=== PATIENT | female | born 1980 | race Caucasian/White ===

== ENCOUNTER 2017-08-02 11:16 | Day surgery (SDC) | payer BC ==
[~2017-08-02] VITALS: Ht 157.5 cm; Wt 122.9 kg
[~2017-08-02 11:16] MED LIST: ACET325 PO; CLIN300 PO; CYCL10 PO; ESCI20 PO; FOLI1 PO; HYDACE5 PO; Hair, Skin & N1 EACH PO; IBUP800 PO; METF500 PO; Omeprazole20 M1 PO; PREN-16 PO; ROSU10TA PO
[2017-08-14] MEDS ORDERED: RANI150 PO (09:48)
== END 2017-08-02 22:57 | disposition home or self-care (01) ==
LOC: ORSCMMR 11:16
PROVIDERS: Internal Medicine Gastroenterology
PROC: 0DB68ZX Excision of Stomach, Via Natural or Artificial Opening Endoscopic, Diagnostic (ICD-10-PCS; principal; 2017-08-02 13:00)
PROC: 0DB98ZX Excision of Duodenum, Via Natural or Artificial Opening Endoscopic, Diagnostic (ICD-10-PCS; principal; 2017-08-02 13:00)
DX: K21.9 Gastro-esophageal reflux disease without esophagitis (principal); K29.00 Acute gastritis without bleeding; K92.1 Melena; R19.7 Diarrhea, unspecified; F17.210 Nicotine dependence, cigarettes, uncomplicated; E11.9 Type 2 diabetes mellitus without complications; E66.9 Obesity, unspecified; Z68.43 Body mass index [BMI] 50.0-59.9, adult; Z79.84 Long term (current) use of oral hypoglycemic drugs; Z79.899 Other long term (current) drug therapy
CPT/HCPCS: 82947; 88305; 88342; J2250; J7120

== ENCOUNTER 2017-08-22 07:42 | Day surgery (SDC) | payer BC ==
[2017-08-21 08:56] LABS: Hematocrit 44.9 % (33.0-51.0); Hemoglobin 15.2 g/dL (11.5-16.0); Mean Corpuscular HGB 31.7 pg (26.0-34.0); Mean Corpuscular HGB Conc 33.9 g/dL (31.5-36.5); Mean Corpuscular Volume 94 fL (80-100); Mean Platelet Volume 9.9 fL (9.1-12.4); Platelet Count 258 K/mm3 (150-400); RDW Coefficient Variation 12.5 % (11.7-14.2); RDW Standard Deviation 43.7 fL (35.1-46.3); White Blood Cell Count 8.12 K/mm3 (4.00-11.30)
[2017-08-21 09:14] LABS: Anion Gap 6 mmol/L (6-16); Blood Urea Nitrogen 11 mg/dL (8-24); Bun/Creatinine Ratio 14.9 (12.0-20.0); CO2, Blood 26 mmol/L (21-32); Calcium, Blood 8.8 mg/dL (8.5-10.1); Chloride, Blood 106 mmol/L (98-108); Creatinine, Blood 0.74 mg/dL (0.40-1.00); Glomerular Filtration Rate >60 (60-); Glucose, Blood 93 mg/dL (70-99); Potassium, Blood 3.9 mmol/L (3.5-5.5); Sodium, Blood 138 mmol/L (136-145)
[~2017-08-22] VITALS: Ht 157.5 cm; Wt 122.7 kg
[~2017-08-22 07:42] MED LIST changes: +RANI150 PO
[2017-08-22] MEDS ORDERED: METFORMIN HCL500 MG PO (08:42)
[2017-08-22] MEDS ORDERED: PANT20 PO (08:44)
[2017-08-22] MEDS ORDERED: GABA100 PO (19:34)
[2017-08-23 04:57] LABS: BASOPHILS ABSOLUTE AUTO 0.03 K/mm3 (0.00-0.23); BASOPHILS PERCENT AUTO 0 % (0-2); EOSINOPHILS ABSOLUTE AUTO 0.05 K/mm3 (0.00-0.68); EOSINOPHILS PERCENT AUTO 0 % (0-6); Hematocrit 38.7 % (33.0-51.0); IMMATURE GRAN ABSOLUTE AUTO 0.09 K/mm3 (0.00-0.10); IMMATURE GRAN PERCENT AUTO 1 % (0-1); LYMPHOCYTES ABSOLUTE AUTO 2.55 K/mm3 (0.84-5.20); LYMPHOCYTES PERCENT AUTO 14 % (21-46); MONOCYTES ABSOLUTE AUTO 1.06 K/mm3 (0.16-1.47); MONOCYTES PERCENT AUTO 6 % (4-13); Mean Corpuscular HGB 31.6 pg (26.0-34.0); Mean Corpuscular HGB Conc 33.6 g/dL (31.5-36.5); Mean Corpuscular Volume 94 fL (80-100); Mean Platelet Volume 9.5 fL (9.1-12.4); NEUTROPHILS ABSOLUTE AUTO 14.43 K/mm3 (1.96-9.15); NEUTROPHILS PERCENT AUTO 79 % (41-73); Platelet Count 243 K/mm3 (150-400); RDW Coefficient Variation 12.5 % (11.7-14.2); RDW Standard Deviation 43.8 fL (35.1-46.3); Red Blood Cell Count 4.11 M/mm3 (3.80-5.20); White Blood Cell Count 18.21 K/mm3 (4.00-11.30)
[2017-08-23] MEDS ORDERED: DOCU100 PO (13:24)
[2017-08-23] MEDS ORDERED: Climara Pro Pa1 EACH TOP (13:27)
[2017-08-23] MEDS ORDERED: IBUP800 PO (13:29)
[2017-08-23] MEDS ORDERED: Percocet 5-3251 EACH PO (13:30)
== END 2017-08-23 14:02 | disposition home or self-care (01) ==
LOC: ORSCMMR 07:42 → ORD 10:00 → ORSCMMR 10:00 → SURS 12:45 → ORSCMMR 08-23 14:02
PROVIDERS: Obstetrics & Gynecology
PROC: 0UT2FZZ Resection of Bilateral Ovaries, Via Natural or Artificial Opening With Percutaneous Endoscopic Assistance (ICD-10-PCS; principal; 2017-08-22 10:00)
PROC: 0UT7FZZ Resection of Bilateral Fallopian Tubes, Via Natural or Artificial Opening With Percutaneous Endoscopic Assistance (ICD-10-PCS; principal; 2017-08-22 10:00)
PROC: 0UT9FZZ Resection of Uterus, Via Natural or Artificial Opening With Percutaneous Endoscopic Assistance (ICD-10-PCS; principal; 2017-08-22 10:00)
DX: N92.0 Excessive and frequent menstruation with regular cycle (principal); N94.6 Dysmenorrhea, unspecified; N83.8 Other noninflammatory disorders of ovary, fallopian tube and broad ligament; E11.9 Type 2 diabetes mellitus without complications; E66.01 Morbid (severe) obesity due to excess calories; Z68.43 Body mass index [BMI] 50.0-59.9, adult; K21.9 Gastro-esophageal reflux disease without esophagitis; F17.210 Nicotine dependence, cigarettes, uncomplicated; Z79.899 Other long term (current) drug therapy
CPT/HCPCS: 36415; 80048; 82947; 85025; 85027; 86850; 86900; 86901; 88307; 93005; 93010; C9113; J0171; J0690; J1100; J1170; J1885; J2250; J2370; J2405; J2710; J3010; J7120

== ENCOUNTER → 2017-09-05 | Outpatient (CLI) | payer OTHER ==
[~2017-09-05] MED LIST changes: +Climara Pro Pa1 EACH TOP; +DOCU100 PO; +GABA100 PO; +METFORMIN HCL500 MG PO; +PANT20 PO; +Percocet 5-3251 EACH PO
[2017-09-05 12:03] LABS: Source, Urine Clean Catch
[2017-09-05 12:57] LABS: Bilirubin, Urine Neg (Neg); Blood, Urine 4+ (Neg); Glucose Qualitative, Urine Neg (Neg); Ketones, Urine Neg (Neg); Leukocyte Esterase, Urine 3+ (Neg); Nitrite, Urine Neg (Neg); Protein, Urine Neg (Neg); Urobilinogen, Urine NORM (Normal)
[2017-09-05 13:07] LABS: Appearance, Urine Cloudy (Clear); Color, Urine Yellow (P-Yellow)
[2017-09-05 13:10] LABS: White Blood Cells, Urine 25-50 /hpf (0-5)
[2017-09-05 13:12] LABS: Squamous Epithelial Cells Mod /hpf (Few)
[2017-09-05 13:13] LABS: Bacteria Mod /hpf
== END ==
LOC: LAB SHORT 12:00 → LAB 12:00
PROVIDERS: Obstetrics & Gynecology
DX: R39.9 Unspecified symptoms and signs involving the genitourinary system (principal)
CPT/HCPCS: 81001; 87086

== ENCOUNTER 2023-12-03 14:05 | Emergency (ER) | payer OTHER ==
[~2023-12-03] VITALS: Ht 160 cm; Wt 129.3 kg
[2023-12-03 14:30] VITALS: BP 144/107
[2023-12-03] MEDS ORDERED: Diazepam 5 MG Tab PO ONE (14:35)
[2023-12-03] MEDS ORDERED: Ketorolac Tromethamine 30mg Vial IM ONE (14:35)
[2023-12-03] MEDS ORDERED: KETO10 PO (15:51)
== END 2023-12-03 16:19 | disposition home or self-care (01) ==
LOC: ER 14:05
DX: M51.37 Other intervertebral disc degeneration, lumbosacral region (principal); G89.29 Other chronic pain; G47.30 Sleep apnea, unspecified; F17.200 Nicotine dependence, unspecified, uncomplicated; Z79.818 Long term (current) use of other agents affecting estrogen receptors and estrogen levels; Z79.84 Long term (current) use of oral hypoglycemic drugs; Z79.899 Other long term (current) drug therapy; Z88.0 Allergy status to penicillin; Z91.011 Allergy to milk products; Z88.8 Allergy status to other drugs, medicaments and biological substances
CPT/HCPCS: 96372; 99282-25; A9270; J1885

== ENCOUNTER → 2024-03-20 | Outpatient (CLI) | payer OTHER ==
[~2024-03-20] MED LIST changes: +KETO10 PO
[2024-03-20 19:56] LABS: U Amphetamine Screen Not Detected; U Barbituate Screen Not Detected; U Benzodiazapine Screen Not Detected; U Buprenorphine Screen Not Detected; U Cannabinoids Screen DETECTED; U Cocaine Screen Not Detected; U Methadone Screen Not Detected; U Methamphetamine Screen Not Detected; U Opiates Screen Not Detected; U Oxycodone Screen Not Detected; U Phencyclidine Screen Not Detected
[2024-03-25 16:12] LABS: 3-OH-COTININE, URN, QUANT <50 ng/mL; ANABASINE, URN, QUANT <5 ng/mL; COTININE, URN, QUANT <15 ng/mL; NICOTINE, URN, QUANT <15 ng/mL
== END | disposition home or self-care (01) ==
LOC: LAB 15:06 → LAB SHORT 15:06
PROVIDERS: Student in an Organized Health Care Education/Training Program
DX: E66.9 Obesity, unspecified (principal)

== ENCOUNTER 2024-08-12 02:49 | Day surgery (SDC) | payer OTHER ==
[2024-08-12] MEDS ORDERED: Lactated Ringer's 2,000 ML IV SCH (06:45)
[2024-08-12 14:20] VITALS: BP 119/68
[2024-08-12] MEDS ORDERED: XARELTO (14:56)
[2024-08-12] MEDS ORDERED: MIRT30ST PO (14:56)
[2024-08-12] MEDS ORDERED: ONDA4ODT MM (14:57)
[2024-08-12 15:45] LABS: BASOPHILS ABSOLUTE AUTO 0.09 K/mm3 (0.00-0.23); BASOPHILS PERCENT AUTO 1 % (0-2); EOSINOPHILS ABSOLUTE AUTO 0.11 K/mm3 (0.00-0.68); EOSINOPHILS PERCENT AUTO 1 % (0-6); Hematocrit 29.2 % (33.0-51.0); Hemoglobin 9.1 g/dL (11.5-16.0); IMMATURE GRAN ABSOLUTE AUTO 0.26 K/mm3 (0.00-0.10); IMMATURE GRAN PERCENT AUTO 2 % (0-1); LYMPHOCYTES ABSOLUTE AUTO 2.43 K/mm3 (0.84-5.20); LYMPHOCYTES PERCENT AUTO 19 % (21-46); MONOCYTES ABSOLUTE AUTO 1.53 K/mm3 (0.16-1.47); MONOCYTES PERCENT AUTO 12 % (4-13); Mean Corpuscular HGB 27.6 pg (26.0-34.0); Mean Corpuscular HGB Conc 31.2 g/dL (31.5-36.5); Mean Corpuscular Volume 89 fL (80-100); Mean Platelet Volume 9.4 fL (9.1-12.4); NEUTROPHILS PERCENT AUTO 65 % (41-73); NRBC ABSOLUTE 0.05 K/mm3 (0.00-0.02); NRBC Auto 0.4 /100 WBC (0.0-0.2); Platelet Count 617 K/mm3 (150-400); RDW Coefficient Variation 14.5 % (11.7-14.2); RDW Standard Deviation 45.9 fL (35.1-46.3); White Blood Cell Count 12.72 K/mm3 (4.00-11.30)
[2024-08-12 16:02] LABS: Albumin, Blood 2.3 g/dL (3.4-5.0); Anion Gap 12 mmol/L (3-11); Blood Urea Nitrogen 11 mg/dL (8-24); Bun/Creatinine Ratio 17.7 (12.0-20.0); CO2, Blood 32 mmol/L (21-32); Calcium, Blood 8.8 mg/dL (8.5-10.1); Chloride, Blood 89 mmol/L (98-108); Creatinine, Blood 0.62 mg/dL (0.40-1.00); Glomerular Filtration Rate 114 (60-); Glucose, Blood 113 mg/dL (70-99); Phosphorus, Blood 3.4 mg/dL (2.5-4.9); Potassium, Blood 3.4 mmol/L (3.5-5.5); Sodium, Blood 130 mmol/L (136-145)
== END 2024-08-12 16:55 | disposition home or self-care (01) ==
LOC: ATC 02:49
PROVIDERS: Student in an Organized Health Care Education/Training Program
DX: E86.0 Dehydration (principal); K91.81 Other intraoperative complications of digestive system; G47.33 Obstructive sleep apnea (adult) (pediatric); E78.5 Hyperlipidemia, unspecified; K21.9 Gastro-esophageal reflux disease without esophagitis; E66.813 Obesity, class 3; Z68.43 Body mass index [BMI] 50.0-59.9, adult; Z87.891 Personal history of nicotine dependence; Z79.899 Other long term (current) drug therapy; Z88.0 Allergy status to penicillin; Z88.8 Allergy status to other drugs, medicaments and biological substances; Z90.49 Acquired absence of other specified parts of digestive tract
CPT/HCPCS: 80069; 85025; 96360; 96361; J7120

== ENCOUNTER 2024-08-16 00:55 | Emergency (ER) | payer OTHER ==
[~2024-08-16] VITALS: Ht 160 cm; Wt 118.4 kg
[~2024-08-16 00:55] MED LIST changes: +MIRT30ST PO; +ONDA4ODT MM; +XARELTO
[2024-08-16 02:40] VITALS: BP 136/74
== END 2024-08-16 02:47 | disposition home or self-care (01) ==
LOC: ER 00:55
DX: Z43.1 Encounter for attention to gastrostomy (principal); G47.30 Sleep apnea, unspecified; F17.200 Nicotine dependence, unspecified, uncomplicated; Z79.899 Other long term (current) drug therapy; Z88.0 Allergy status to penicillin; Z91.011 Allergy to milk products; Z88.1 Allergy status to other antibiotic agents; Z88.8 Allergy status to other drugs, medicaments and biological substances
CPT/HCPCS: 99283

== ENCOUNTER 2024-08-17 08:04 | Day surgery (SDC) | payer OTHER ==
[2024-08-17] MEDS ORDERED: Lactated Ringer's 1,000 ML IV SCH (08:25)
[2024-08-17 09:01] VITALS: BP 128/73
== END 2024-08-17 11:20 | disposition home or self-care (01) ==
LOC: ATC 08:04
DX: E86.0 Dehydration (principal); K91.81 Other intraoperative complications of digestive system; K21.9 Gastro-esophageal reflux disease without esophagitis; G47.33 Obstructive sleep apnea (adult) (pediatric); M47.9 Spondylosis, unspecified; F32.9 Major depressive disorder, single episode, unspecified; E78.5 Hyperlipidemia, unspecified; E66.813 Obesity, class 3; Z68.43 Body mass index [BMI] 50.0-59.9, adult; Z87.891 Personal history of nicotine dependence; Z79.899 Other long term (current) drug therapy; Z88.0 Allergy status to penicillin; Z88.8 Allergy status to other drugs, medicaments and biological substances; Z90.710 Acquired absence of both cervix and uterus; Z90.49 Acquired absence of other specified parts of digestive tract
CPT/HCPCS: 96360; 96361; J7120

== ENCOUNTER 2024-09-23 01:02 | Day surgery (SDC) | payer OTHER ==
[2024-09-23] MEDS ORDERED: Sod Ferric Gluc Complx/Sucrose 125 MG in NS 100 ML IV SCH (06:00)
[2024-09-23 15:08] VITALS: BP 112/76
[2024-09-23 17:59] LABS: Albumin, Blood 3.2 g/dL (3.4-5.0); Anion Gap 10 mmol/L (3-11); Blood Urea Nitrogen 12 mg/dL (8-24); Bun/Creatinine Ratio 20.1 (12.0-20.0); CO2, Blood 31 mmol/L (21-32); Calcium, Blood 9.5 mg/dL (8.5-10.1); Chloride, Blood 99 mmol/L (98-108); Glomerular Filtration Rate 115 (60-); Glucose, Blood 90 mg/dL (70-99); Phosphorus, Blood 4.3 mg/dL (2.5-4.9); Sodium, Blood 136 mmol/L (136-145)
[2024-09-23 18:30] LABS: BASOPHILS ABSOLUTE AUTO 0.07 K/mm3 (0.00-0.23); BASOPHILS PERCENT AUTO 1 % (0-2); EOSINOPHILS ABSOLUTE AUTO 0.21 K/mm3 (0.00-0.68); EOSINOPHILS PERCENT AUTO 2 % (0-6); Hematocrit 36.1 % (33.0-51.0); Hemoglobin 10.8 g/dL (11.5-16.0); IMMATURE GRAN ABSOLUTE AUTO 0.04 K/mm3 (0.00-0.10); IMMATURE GRAN PERCENT AUTO 0 % (0-1); LYMPHOCYTES ABSOLUTE AUTO 2.73 K/mm3 (0.84-5.20); LYMPHOCYTES PERCENT AUTO 30 % (21-46); MONOCYTES ABSOLUTE AUTO 0.52 K/mm3 (0.16-1.47); MONOCYTES PERCENT AUTO 6 % (4-13); Mean Corpuscular HGB 23.3 pg (26.0-34.0); Mean Corpuscular HGB Conc 29.9 g/dL (31.5-36.5); Mean Corpuscular Volume 78 fL (80-100); NEUTROPHILS ABSOLUTE AUTO 5.46 K/mm3 (1.96-9.15); NEUTROPHILS PERCENT AUTO 61 % (41-73); RDW Coefficient Variation 16.1 % (11.7-14.2); RDW Standard Deviation 45.8 fL (35.1-46.3); Red Blood Cell Count 4.64 M/mm3 (3.80-5.20); White Blood Cell Count 9.03 K/mm3 (4.00-11.30)
== END 2024-09-23 16:15 | disposition home or self-care (01) ==
LOC: ATC 01:02
PROVIDERS: Student in an Organized Health Care Education/Training Program
DX: E61.1 Iron deficiency (principal); K91.81 Other intraoperative complications of digestive system; K63.2 Fistula of intestine; G47.33 Obstructive sleep apnea (adult) (pediatric); Z79.899 Other long term (current) drug therapy
CPT/HCPCS: 80069; 85025; 96365; J2916

== ENCOUNTER 2024-09-28 08:12 | Day surgery (SDC) | payer OTHER ==
[~2024-09-28 08:12] MED LIST changes: +Lactated Ringer's 1,000 ML IV SCH; +Sod Ferric Gluc Complx/Sucrose 125 MG in NS 100 ML IV SCH
[2024-09-28 16:12] VITALS: BP 126/93
== END 2024-09-28 19:30 | disposition home or self-care (01) ==
LOC: ATC 08:12
DX: E61.1 Iron deficiency (principal); G47.33 Obstructive sleep apnea (adult) (pediatric); Z79.899 Other long term (current) drug therapy
CPT/HCPCS: 96361; 96365; J2916; J7120

== ENCOUNTER 2024-09-30 03:06 | Day surgery (SDC) | payer OTHER ==
[~2024-09-30 03:06] MED LIST changes: -Lactated Ringer's 1,000 ML IV SCH; -Sod Ferric Gluc Complx/Sucrose 125 MG in NS 100 ML IV SCH
[2024-09-30] MEDS ORDERED: Sod Ferric Gluc Complx/Sucrose 125 MG in NS 100 ML IV SCH (06:00)
[2024-09-30] MEDS ORDERED: Lactated Ringer's 1,000 ML IV SCH (07:15)
[2024-09-30 13:48] VITALS: BP 135/82
== END 2024-09-30 16:05 | disposition home or self-care (01) ==
LOC: ATC 03:06
DX: E61.1 Iron deficiency (principal); G47.33 Obstructive sleep apnea (adult) (pediatric); E66.01 Morbid (severe) obesity due to excess calories; Z68.42 Body mass index [BMI] 45.0-49.9, adult; Z79.899 Other long term (current) drug therapy
CPT/HCPCS: 96361; 96365; J2916; J7120

== ENCOUNTER 2024-10-06 02:45 | Day surgery (SDC) | payer OTHER ==
[~2024-10-06 02:45] MED LIST changes: +Sod Ferric Gluc Complx/Sucrose 125 MG in NS 100 ML IV SCH
[2024-10-06] MEDS ORDERED: Lactated Ringer's 1,000 ML IV SCH (06:45)
[2024-10-06 15:27] VITALS: BP 109/70
[2024-10-06 16:10] LABS: BASOPHILS ABSOLUTE AUTO 0.05 K/mm3 (0.00-0.23); BASOPHILS PERCENT AUTO 1 % (0-2); EOSINOPHILS ABSOLUTE AUTO 0.16 K/mm3 (0.00-0.68); EOSINOPHILS PERCENT AUTO 2 % (0-6); Hematocrit 42.8 % (33.0-51.0); Hemoglobin 12.8 g/dL (11.5-16.0); IMMATURE GRAN ABSOLUTE AUTO 0.02 K/mm3 (0.00-0.10); IMMATURE GRAN PERCENT AUTO 0 % (0-1); LYMPHOCYTES ABSOLUTE AUTO 2.67 K/mm3 (0.84-5.20); LYMPHOCYTES PERCENT AUTO 38 % (21-46); MONOCYTES ABSOLUTE AUTO 0.43 K/mm3 (0.16-1.47); MONOCYTES PERCENT AUTO 6 % (4-13); Mean Corpuscular HGB 23.3 pg (26.0-34.0); Mean Corpuscular HGB Conc 29.9 g/dL (31.5-36.5); Mean Corpuscular Volume 78 fL (80-100); Mean Platelet Volume 10.7 fL (9.1-12.4); NEUTROPHILS ABSOLUTE AUTO 3.68 K/mm3 (1.96-9.15); NEUTROPHILS PERCENT AUTO 53 % (41-73); Platelet Count 359 K/mm3 (150-400); RDW Coefficient Variation 19.2 % (11.7-14.2); RDW Standard Deviation 51.9 fL (35.1-46.3); White Blood Cell Count 7.01 K/mm3 (4.00-11.30)
--- NOTE | 2024-10-06 16:18 | NUR ---
PT BECAME DIAPHORETIC AND C/O NAUSEA WITH IV STARTS. LAID PT BACK AND CALMED PT DOWN. GAVE PT WARM BLANKET. SYMPTOMS RESOLVED QUICKLY.
[2024-10-06 16:43] LABS: Albumin, Blood 3.6 g/dL (3.4-5.0); Anion Gap 10 mmol/L (3-11); Blood Urea Nitrogen 13 mg/dL (8-24); Bun/Creatinine Ratio 23.3 (12.0-20.0); CO2, Blood 26 mmol/L (21-32); Chloride, Blood 103 mmol/L (98-108); Creatinine, Blood 0.56 mg/dL (0.40-1.00); Glomerular Filtration Rate 117 (60-); Glucose, Blood 85 mg/dL (70-99); Phosphorus, Blood 4.1 mg/dL (2.5-4.9); Sodium, Blood 135 mmol/L (136-145)
== END 2024-10-06 18:33 | disposition home or self-care (01) ==
LOC: ATC 02:45
PROVIDERS: Student in an Organized Health Care Education/Training Program
DX: E61.1 Iron deficiency (principal); E87.1 Hypo-osmolality and hyponatremia; R62.7 Adult failure to thrive; G47.33 Obstructive sleep apnea (adult) (pediatric); Z99.89 Dependence on other enabling machines and devices; E66.813 Obesity, class 3; Z68.42 Body mass index [BMI] 45.0-49.9, adult
CPT/HCPCS: 80069; 85025; 96361; 96365; J2916; J7120

== ENCOUNTER 2024-10-09 02:24 | Day surgery (SDC) | payer OTHER ==
[2024-10-09] MEDS ORDERED: Lactated Ringer's 1,000 ML IV SCH (06:55)
[2024-10-09 14:53] VITALS: BP 131/73
== END 2024-10-09 18:30 | disposition home or self-care (01) ==
LOC: ATC 02:24
DX: E61.1 Iron deficiency (principal); G47.33 Obstructive sleep apnea (adult) (pediatric); E66.813 Obesity, class 3; Z68.43 Body mass index [BMI] 50.0-59.9, adult; Z98.84 Bariatric surgery status; Z87.891 Personal history of nicotine dependence
CPT/HCPCS: 96361; 96365; C1751; J2916; J7120

== ENCOUNTER 2024-10-12 04:49 | Day surgery (SDC) | payer OTHER ==
[2024-10-12] MEDS ORDERED: Lactated Ringer's 1,000 ML IV SCH (07:05)
[2024-10-12 14:49] VITALS: BP 116/79
== END 2024-10-12 18:05 | disposition home or self-care (01) ==
LOC: ATC 04:49
DX: E61.1 Iron deficiency (principal); G47.33 Obstructive sleep apnea (adult) (pediatric); E66.813 Obesity, class 3; E66.01 Morbid (severe) obesity due to excess calories; Z68.42 Body mass index [BMI] 45.0-49.9, adult; Z79.899 Other long term (current) drug therapy
CPT/HCPCS: 96361; 96365; J2916; J7120

== ENCOUNTER 2024-10-14 02:33 | Day surgery (SDC) | payer OTHER ==
[2024-10-14] MEDS ORDERED: Lactated Ringer's 1,000 ML IV SCH (15:00)
[2024-10-14 15:01] VITALS: BP 119/81
== END 2024-10-14 18:14 | disposition home or self-care (01) ==
LOC: ATC 02:33
DX: E61.1 Iron deficiency (principal); E87.1 Hypo-osmolality and hyponatremia; G47.33 Obstructive sleep apnea (adult) (pediatric); E66.813 Obesity, class 3; Z68.42 Body mass index [BMI] 45.0-49.9, adult; Z98.84 Bariatric surgery status; Z99.89 Dependence on other enabling machines and devices
CPT/HCPCS: 96361; 96365; J2916; J7120

== ENCOUNTER 2024-10-19 00:42 | Day surgery (SDC) | payer OTHER ==
[~2024-10-19 00:42] MED LIST changes: -Sod Ferric Gluc Complx/Sucrose 125 MG in NS 100 ML IV SCH
[2024-10-19] MEDS ORDERED: Sod Ferric Gluc Complx/Sucrose 125 MG in NS 100 ML IV SCH (01:00)
[2024-10-19] MEDS ORDERED: Lactated Ringer's 1,000 ML IV SCH (07:10)
[2024-10-19 15:08] VITALS: BP 122/80
[2024-10-19 17:04] LABS: BASOPHILS ABSOLUTE AUTO 0.04 K/mm3 (0.00-0.23); BASOPHILS PERCENT AUTO 1 % (0-2); EOSINOPHILS ABSOLUTE AUTO 0.16 K/mm3 (0.00-0.68); EOSINOPHILS PERCENT AUTO 2 % (0-6); Hematocrit 42.2 % (33.0-51.0); Hemoglobin 12.6 g/dL (11.5-16.0); IMMATURE GRAN ABSOLUTE AUTO 0.01 K/mm3 (0.00-0.10); IMMATURE GRAN PERCENT AUTO 0 % (0-1); LYMPHOCYTES ABSOLUTE AUTO 2.35 K/mm3 (0.84-5.20); LYMPHOCYTES PERCENT AUTO 36 % (21-46); MONOCYTES ABSOLUTE AUTO 0.34 K/mm3 (0.16-1.47); MONOCYTES PERCENT AUTO 5 % (4-13); Mean Corpuscular HGB Conc 29.9 g/dL (31.5-36.5); Mean Corpuscular Volume 80 fL (80-100); Mean Platelet Volume 10.4 fL (9.1-12.4); NEUTROPHILS ABSOLUTE AUTO 3.64 K/mm3 (1.96-9.15); NEUTROPHILS PERCENT AUTO 56 % (41-73); Platelet Count 291 K/mm3 (150-400); RDW Coefficient Variation 21.2 % (11.7-14.2); RDW Standard Deviation 60.2 fL (35.1-46.3); Red Blood Cell Count 5.26 M/mm3 (3.80-5.20); White Blood Cell Count 6.54 K/mm3 (4.00-11.30)
[2024-10-19 17:37] LABS: Albumin, Blood 3.3 g/dL (3.4-5.0); Anion Gap 9 mmol/L (3-11); Blood Urea Nitrogen 8 mg/dL (8-24); Bun/Creatinine Ratio 13.2 (12.0-20.0); CO2, Blood 30 mmol/L (21-32); Calcium, Blood 9.2 mg/dL (8.5-10.1); Chloride, Blood 103 mmol/L (98-108); Creatinine, Blood 0.61 mg/dL (0.40-1.00); Glomerular Filtration Rate 114 (60-); Glucose, Blood 111 mg/dL (70-99); Phosphorus, Blood 3.5 mg/dL (2.5-4.9); Potassium, Blood 3.2 mmol/L (3.5-5.5); Sodium, Blood 139 mmol/L (136-145)
--- NOTE | 2024-10-19 18:38 | NUR ---
Lab results from today faxed to Dr Palafox's office.
== END 2024-10-19 18:35 | disposition home or self-care (01) ==
LOC: ATC 00:42
PROVIDERS: Student in an Organized Health Care Education/Training Program
DX: E61.1 Iron deficiency (principal); G47.33 Obstructive sleep apnea (adult) (pediatric); E66.813 Obesity, class 3; Z68.42 Body mass index [BMI] 45.0-49.9, adult; Z79.899 Other long term (current) drug therapy
CPT/HCPCS: 80069; 85025; 96361; 96365; J2916; J7120

== ENCOUNTER 2024-11-08 01:23 | Day surgery (SDC) | payer OTHER ==
[~2024-11-08 01:23] MED LIST changes: +PREG75 PO
[2024-11-08] MEDS ORDERED: Lactated Ringer's 1,000 ML IV SCH (07:05)
[2024-11-08 14:50] VITALS: BP 140/70
== END 2024-11-08 16:50 | disposition home or self-care (01) ==
LOC: ATC 01:23
DX: K91.81 Other intraoperative complications of digestive system (principal); E86.0 Dehydration; G47.33 Obstructive sleep apnea (adult) (pediatric); E66.813 Obesity, class 3; Z68.42 Body mass index [BMI] 45.0-49.9, adult; Z98.84 Bariatric surgery status; Z99.89 Dependence on other enabling machines and devices
CPT/HCPCS: 96360; 96361; J7120